=== PATIENT | male | born 1945 | race Caucasian/White ===

== ENCOUNTER → 2017-06-08 | Outpatient (CLI) | payer OTHER, MEDICARE ==
[~2017-06-08] MED LIST: ALLEGRA180 MG PO; ASPIRIN E.C. 8181 MG PO; FLOMAX 0.40.4 MG/CAP PO; GLUCOPHAGE1000 MG PO; GLUCOPHAGE500 MG/TAB PO; GLUCOSAMINE & C1 CA1 PO; GLUCOSAMINE & C1 TA1 PO; LEVAQUIN 5500 MG/TA1 PO; LORTAB 5/500 501 TAB PO; MULTI VITAMINS1 TAB PO; NORCO 325 MG-51 TAB PO; PLAVIX 75MG TAB75 MG PO; TOPROL XL 50MG50 MG PO; ZOFRAN 4MG T4 MG/TAB PO
== END ==
LOC: SUN.DIA 14:33
DX: E11.9 Type 2 diabetes mellitus without complications (principal); Z71.3 Dietary counseling and surveillance
CPT/HCPCS: G0109

== ENCOUNTER → 2017-06-21 | Outpatient (CLI) | payer OTHER, MEDICARE | LOC: SUN.DIA 10:01 | DX: E11.9 Type 2 diabetes mellitus without complications (principal); Z68.23 Body mass index [BMI] 23.0-23.9, adult; Z71.3 Dietary counseling and surveillance | CPT/HCPCS: G0108 ==

== ENCOUNTER → 2017-06-22 | Outpatient (CLI) | payer OTHER, MEDICARE | LOC: SUN.DIA 08:43 | DX: E11.9 Type 2 diabetes mellitus without complications (principal); Z71.3 Dietary counseling and surveillance | CPT/HCPCS: G0109 ==

== ENCOUNTER → 2017-06-29 | Outpatient (CLI) | payer OTHER, MEDICARE | LOC: SUN.DIA 10:42 | DX: E11.9 Type 2 diabetes mellitus without complications (principal) | CPT/HCPCS: G0109 ==

== ENCOUNTER → 2017-07-06 | Outpatient (CLI) | payer OTHER, MEDICARE | LOC: SUN.DIA 18:00 | DX: E11.9 Type 2 diabetes mellitus without complications (principal); Z71.3 Dietary counseling and surveillance | CPT/HCPCS: G0109 ==

== ENCOUNTER → 2017-07-07 | Outpatient (CLI) | payer MEDICARE | LOC: SUN.DIA 09:32 | DX: E11.9 Type 2 diabetes mellitus without complications (principal); Z68.23 Body mass index [BMI] 23.0-23.9, adult; Z71.3 Dietary counseling and surveillance ==

== ENCOUNTER → 2017-08-18 | Outpatient (CLI) | payer MEDICARE, OTHER | LOC: SUN.DIA 09:32 | DX: E11.9 Type 2 diabetes mellitus without complications (principal); Z68.23 Body mass index [BMI] 23.0-23.9, adult; Z71.3 Dietary counseling and surveillance ==

== ENCOUNTER → 2018-06-01 | Outpatient (CLI) | payer MEDICARE, OTHER ==
[~2018-06-01] MED LIST changes: +ALLEGRA ALLERGY60 MG PO; +BENEFIBER; +LIPITOR 10MG10 MG PO; +OSTEO-BI-FLEX 21 TAB PO; +UROCIT-K 5540 MG/TAB PO
== END ==
LOC: COL.RAD 09:58
DX: I25.2 Old myocardial infarction (principal); R59.0 Localized enlarged lymph nodes
CPT/HCPCS: Q9967

== ENCOUNTER 2018-07-28 16:33 | Inpatient (IN) | payer MEDICARE, OTHER ==
[~2018-07-28] VITALS: Ht 177.8 cm; Wt 73.6 kg
[2018-08-23] VITALS (12 sets, daily range): BP systolic 91–131; BP diastolic 49–78; PULSE 51–75; TEMP 97.6–98.6
[2018-08-23] MEDS ORDERED: POTASSIUM CITRATE ER PO (03:06)
[2018-08-23] MEDS ORDERED: UROCIT-K 5540 MG/TAB PO (03:06)
--- NOTE | 2018-08-23 06:30 | NUR ---
to surgery per bed, bedside shift report received from CODY Prieto
--- NOTE | 2018-08-23 10:45 | NUR ---
returned to room per bed from PACU, awake and alert, IV infusing and placed on pump at 125ml/hr, O2 on at 3L/NC and O2 sat 100%, zacarias cath patent draining clear yellow urine, SCDS and JOSIE hose on, has sensation to top of thighs and unable to move lower extremities, full assessment completed, see interventions for further info, given sips of water and tolerates well, denies needs, and daughter at bedside
--- NOTE | 2018-08-23 12:33 | NUR ---
has sensation to knee on the left and calf on the right, also has gross motor movement, provided applesauce per his request, otherwise denies needs, sleeps between checks
--- NOTE | 2018-08-23 13:10 | NUR ---
Rosalie CHILD in to see patient
--- NOTE | 2018-08-23 13:30 | NUR ---
awake now and ready for something to eat, instructed on ordering regular food, verbalizes understanding
--- NOTE | 2018-08-23 14:30 | NUR ---
had lunch and tolerated well, has sensation to feet and is able to move lower extremities, denies needs
--- NOTE | 2018-08-23 20:00 | NUR ---
Assessment completed. Patient is A&O x 4. VSS, currently on 3 liters of supplemental O2 via nasal cannula. Denies any pain at this time. Aquacell dressing to left hip is CDI with a fresh ice pack applied. Pedal pulses intact. BLE marleni hose/scds on. Encouraged ankle pumps. Tolerating diet with no c/o nausea. Serrano catheter to DD with yellow clear urine draining. IVF infusing with intermittent antibiotic per orders. Up with assist x 1 with walker and gait belt, ambulated 50 feet this evening in the hallway with staff. Assisted with repositioning in bed after ambulating in the hallway. Denies any concerns or needs at this time. Bed is in a low position with call light in reach.
--- NOTE | 2018-08-23 23:51 | NUR ---
Patient is resting in bed. Reports "soreness" to left upper thigh, denies wanting any pain medication at this time.
[2018-08-24 00:53] VITALS: BP 94/54; PULSE 59; TEMP 98.9
--- NOTE | 2018-08-24 05:31 | NUR ---
Patient has rested well through the night. VSS. Continues to report minimal pain to left hip, denies any pain medication. Aquacell dressing to left hip remains CDI with a fresh ice pack applied to knee. Serrano catheter remains to DD with yellow clear urine draining. IVF to INT after last dose of antibiotic this morning. Denies any concerns or needs at this time, call light is within reach.
[2018-08-24 05:32] VITALS: BP 102/58; PULSE 60; TEMP 98.6
--- NOTE | 2018-08-24 07:00 | NUR ---
awake resting in bed, bedside shift report received from CODY Prieto
[2018-08-24 07:05] LABS: CALCIUM 8.3 mg/dL (8.4-10.2); CREATININE, serum 1.12 mg/dL (0.66-1.25); HEMATOCRIT 35.4 % (42.0-52.0); POTASSIUM 4.3 mmol/L (3.4-5.0)
--- NOTE | 2018-08-24 07:48 | NUR ---
appears to be sleeping, in bed with lights off, eyes closed, resp quiet and easy
[2018-08-24 08:15] VITALS: BP 116/60; PULSE 61; TEMP 97.9
--- NOTE | 2018-08-24 08:15 | NUR ---
up in chair ready for breakfast, full assessment completed, see interventions for further info,
--- NOTE | 2018-08-24 09:20 | NUR ---
physical therapy in to work with patient, ambulating out in banuelos and moves well
--- NOTE | 2018-08-24 10:20 | NUR ---
First visit from the security supervisor. No needs right now.
--- NOTE | 2018-08-24 11:00 | NUR ---
remains up in chair, visiting with , denies needs
[2018-08-24 11:52] VITALS: BP 90/51; PULSE 54; TEMP 98.3
--- NOTE | 2018-08-24 13:16 | NUR ---
ambulated out to banuelos with physical therapy for group exercises
--- NOTE | 2018-08-24 13:54 | NUR ---
SW and SW student met with patient and about discharge planning. Patient lives independently at home with his . His PCP is Dr Rodriguez and he obtians his prescriptions from either [facility] or [facility]. He does not use any home health or medical equipment at home but will need a walker for discharge. Patient has a DPOA and a copy is in the chart. Patient chose [facility] to provide his walker. SW will fax the order to [facility]. No additional needs upon discharge.
--- NOTE | 2018-08-24 14:44 | NUR ---
Walker order placed on chart for DR signature.
--- NOTE | 2018-08-24 15:11 | NUR ---
in chair and appears to be resting, dozes at intervals, denies needs
[2018-08-24 15:56] VITALS: BP 125/62; PULSE 57; TEMP 97.9
--- NOTE | 2018-08-24 15:56 | NUR ---
visiting with friends and denies needs
--- NOTE | 2018-08-24 17:01 | NUR ---
up in chair visiting with , denies needs
--- NOTE | 2018-08-24 17:33 | NUR ---
sitting up in chair eating supper, at beside
--- NOTE | 2018-08-24 18:46 | NUR ---
bedside shift report given to CODY Kimball
--- NOTE | 2018-08-24 20:45 | NUR ---
Pt. sitting up in chair at this time. Pt. is A&OX3, assessment complete. INT to rt. hand patent. Dressing to lt. hip CDI. Pt. denies pain or other needs at this time.
[2018-08-24 20:55] VITALS: BP 135/85; PULSE 77; TEMP 98.6
[2018-08-25 00:15] VITALS: BP 127/69; PULSE 85; TEMP 98.1
--- NOTE | 2018-08-25 06:09 | NUR ---
Pt. slept off and on through the night. Pt. remains A&OX3. INT to rt. hand patent. Dressing to lt. hip CDI. Pt. denies pain or other needs, call light within reach.
[2018-08-25] MEDS ORDERED: NORCO 325 MG-7.1 TAB PO (06:33)
[2018-08-25] MEDS ORDERED: ASPI325T6 PO (06:33)
[2018-08-25] MEDS ORDERED: ZANTAC 150MG T150 MG PO (06:34)
[2018-08-25] MEDS ORDERED: ROXICODONE 55 MG/TAB PO (06:34)
[2018-08-25] MEDS ORDERED: TYLENOL 500MG500 MG PO (06:56)
[2018-08-25] MEDS ORDERED: ULTRAM 50MG TAB50 MG PO (06:56)
--- NOTE | 2018-08-25 07:05 | NUR ---
REPORT FROM LORENA ROSS. PT RESTING IN BED. ROSA HORAN APRN IN TO SEE PT THIS AM. LAUREN PAPERWORK GIVEN TO TRAIN OPERATIONS MANAGER TO HAVE MD SIGN AND [facility]. PT PLANS ON DISCHARGE AFTER THERAPY TODAY.
[2018-08-25 07:19] VITALS: BP 130/65; PULSE 85; TEMP 98.4
--- NOTE | 2018-08-25 09:33 | NUR ---
PT OUT TO [facility] FOR THERAPY AFTER SHOWERING WITH OT. INT DISCONTINUED PER ORDERS. TIP INTACT. PT DOING WELL, PLAN ON DISCHARGE LATER TODAY.
--- NOTE | 2018-08-25 09:51 | NUR ---
Walker order and clinical information sent to [facility]. Patient is dc today home with outpatient PT.
[2018-08-25 11:39] VITALS: BP 109/67; PULSE 78; TEMP 98.5
--- NOTE | 2018-08-25 14:09 | NUR ---
discharge instructions given to patient and spouse. Questions answered. patient taken to front by wheel chair with staff.
== END 2018-08-25 14:11 | disposition home or self-care (01) | DRG 470 ==
LOC: JCC 08-23 05:22
PROVIDERS: Physician Assistant; ADMIT Orthopaedic Surgery
PROC: 0SRB0JA Replacement of Left Hip Joint with Synthetic Substitute, Uncemented, Open Approach (ICD-10-PCS; principal; 2018-08-23 07:30)
DX: M16.12 Unilateral primary osteoarthritis, left hip (principal); E11.9 Type 2 diabetes mellitus without complications; Z79.84 Long term (current) use of oral hypoglycemic drugs; Z85.72 Personal history of non-Hodgkin lymphomas
CPT/HCPCS: 99222; 99231-AI; A4314; A9284; C1713; C1776; J0690; J1100; J1815; J2250; J2370; J2405; J2704; J7030; J7050; J7120

== ENCOUNTER 2018-08-15 13:15 | Outpatient (RCR) | payer MEDICARE, OTHER ==
[2018-08-23] MEDS ORDERED: UROCIT-K 5540 MG/TAB PO (03:06)
[2018-08-23] MEDS ORDERED: POTASSIUM CITRATE ER PO (03:06)
[2018-08-25] MEDS ORDERED: ASPI325T6 PO (06:33)
[2018-08-25] MEDS ORDERED: NORCO 325 MG-7.1 TAB PO (06:33)
[2018-08-25] MEDS ORDERED: ZANTAC 150MG T150 MG PO (06:34)
[2018-08-25] MEDS ORDERED: ROXICODONE 55 MG/TAB PO (06:34)
[2018-08-25] MEDS ORDERED: ULTRAM 50MG TAB50 MG PO (06:56)
[2018-08-25] MEDS ORDERED: TYLENOL 500MG500 MG PO (06:56)
== END 2018-08-28 13:03 | disposition home or self-care (01) ==
LOC: MKS.ESL.PT 13:15
DX: Z01.818 Encounter for other preprocedural examination (principal); M16.12 Unilateral primary osteoarthritis, left hip

== ENCOUNTER → 2018-08-16 | Outpatient (CLI) | payer MEDICARE, OTHER ==
[2018-08-16 12:59] LABS: HIV 1/2 Antibodies Non-Reactive; HIV-1p24 Antigen Non-Reactive
== END ==
LOC: COL.LAB 11:56
PROVIDERS: Orthopaedic Surgery
DX: M16.12 Unilateral primary osteoarthritis, left hip (principal)

== ENCOUNTER 2018-11-16 09:15 | Outpatient (RCR) | payer MEDICARE, OTHER ==
[~2018-11-16 09:15] MED LIST changes: +ASPI325T6 PO; +NORCO 325 MG-7.1 TAB PO; +POTASSIUM CITRATE ER PO; +ROXICODONE 55 MG/TAB PO; +TYLENOL 500MG500 MG PO; +ULTRAM 50MG TAB50 MG PO; +ZANTAC 150MG T150 MG PO
== END 2018-11-26 | disposition home or self-care (01) ==
LOC: MKS.ESL.PT
DX: Z47.1 Aftercare following joint replacement surgery (principal); Z96.642 Presence of left artificial hip joint

== ENCOUNTER → 2020-06-16 | Outpatient (CLI) | payer MEDICARE, OTHER | LOC: COL.RAD 07:33 | DX: C82.98 Follicular lymphoma, unspecified, lymph nodes of multiple sites (principal); R59.0 Localized enlarged lymph nodes | CPT/HCPCS: Q9967 ==

== ENCOUNTER → 2021-06-16 | Outpatient (CLI) | payer MEDICARE, OTHER | LOC: COL.RAD 08:43 | DX: C82.08 Follicular lymphoma grade I, lymph nodes of multiple sites (principal) | CPT/HCPCS: Q9967 ==

== ENCOUNTER 2022-11-28 16:42 | Inpatient (IN) | payer MEDICARE, OTHER ==
[~2022-11-28] VITALS: Ht 177.8 cm; Wt 81.4 kg
[2022-11-28 17:28] LABS: HEMOGLOBIN 12.3 g/dl (13.5-18.0); MEAN CELL VOLUME 88 fl (80.0-100.0); MEAN CORPUSCULAR HEMOGLOBIN 30 pg (27-31); MEAN CORPUSCULAR HGB CONC 34 g/dl (33.0-37.0); MEAN PLATELET VOLUME 9.6 fl (7.4-10.4); PLATELET COUNT 187 K/mm3 (130-400); RED BLOOD COUNT 4.09 M/mm3 (4.20-5.60)
[2022-11-28 17:37] LABS: HEMATOCRIT 35.9 % (42.0-52.0)
[2022-11-28 17:43] LABS: COLLECTION METHOD CLEAN CATCH
[2022-11-28 17:47] LABS: ALANINE AMINOTRANSFERASE 22 U/L (0-55); ALBUMIN 3.9 gm/dL (3.4-4.8); ALKALINE PHOSPHATASE 104 U/L (40-150); ANION GAP 14 mmol/L (7-16); AST,SGOT 18 U/L (5-34); BLOOD UREA NITROGEN 25 mg/dL (8-26); CALCIUM 9.3 mg/dL (8.4-10.2); CARBON DIOXIDE 18 mmol/L (23-31); CHLORIDE 103 mmol/L (98-107); CREATININE, serum 1.55 mg/dL (0.72-1.25); GLUCOSE 275 mg/dL (70-99); POTASSIUM 4.5 mmol/L (3.5-4.5); SODIUM 135 mmol/L (136-145); TOTAL PROTEIN 6.9 gm/dL (6.2-8.1)
[2022-11-28 18:03] LABS: ACETONE,SERUM NEGATIVE
[2022-11-28 18:04] LABS: TROPONIN-I < 0.010 ng/mL (0.00-0.033)
[2022-11-28 18:05] LABS: SQUAMOUS EPITHELIAL 0-2 /hpf (0-10); URINE BACTERIA Rare /hpf (NONE SEEN)
[2022-11-28 18:06] LABS: PH 5.5 (5-8); URINE APPEARANCE Cloudy (CLEAR/HAZY); URINE BLOOD 1+ (NEGATIVE); URINE COLOR Yellow (YELLOW); URINE GLUCOSE 2+ (NEGATIVE); URINE KETONE Negative (NEGATIVE); URINE NITRATE Positive (NEGATIVE); URINE PROTEIN(semi-quant) 1+ (NEGATIVE); URINE UROBILINOGEN 0.2 (NEGATIVE)
[2022-11-28 18:45] LABS: BAND 19 % (0-10); EOSINOPHIL 1 % (0-4); LYMPHOCYTE 4 % (20.0-51.0); NEUTROPHILS 75 % (42.0-75.2); NUCLEATED RED BLOOD CELL 1 (0-6)
[2022-11-28 18:46] LABS: PLATELET ESTIMATE NORMAL (NORMAL)
[2022-11-28] MEDS ORDERED: CIPRO 500MG TA500 MG PO (18:58)
[2022-11-28] MEDS ORDERED: AMARYL1 MG PO (18:59)
[2022-11-28] MEDS ORDERED: PRINIVIL5 MG PO (18:59)
[2022-11-28] MEDS ORDERED: GLUCOPHAGE XR500 M1 PO (18:59)
[2022-11-28] MEDS ORDERED: FLOMAX 0.40.4 MG/CAP PO (19:00)
[2022-11-28 19:01] LABS: INR 1.1 (0.8-3.0); PROTHROMBIN TIME 12.8 SECONDS (9.7-12.8)
[2022-11-28] MEDS ORDERED: ZYRTEC 10MG10 MG PO (19:01)
[2022-11-28] MEDS ORDERED: ASPIRIN 81M81 MG/TA2 PO (19:01)
--- NOTE | 2022-11-28 20:01 | NUR ---
RECEIVED REPORT FROM Raul ROSS, BAS[place]. WAITING FOR PATIENT ARRIVAL TO ROOM 324 FOR ADMIT
--- NOTE | 2022-11-28 20:11 | NUR ---
PATIENT TO FLOOR PER CART. STAND/PIVOT TRANSFER FROM CART TO BED WITH ASST X1 WITH NO REPORTED PROBLEMS.
[2022-11-28 20:15] VITALS: BP 94/52; PULSE 86; TEMP 99.3
[2022-11-28 22:33] VITALS: BP 98/53; PULSE 76; TEMP 98.4
--- NOTE | 2022-11-28 22:37 | NUR ---
CLARIFIED LR BOLUS ORDERS FOR 500 ML TO BE GIVEN WITH PROVIDER WITH CONFIRMATION THAT BOLUS TO BE GIVEN AND TO CONTINUE IV FLUIDS ORDERED. PATIENT DENIES CHEST PAIN/SOA/CHILLING AT THIS TIME. DENIES ANY NEEDS CURRENTLY.
[2022-11-28 23:21] VITALS: BP 90/45; BP 90/54; PULSE 74; TEMP 98.4
--- NOTE | 2022-11-28 23:28 | NUR ---
INFORMED ONCALL HOSP OF CURRENT BP OF 90/45 WITH NO NEW ORDERS GIVEN, WILL CONTINUE TO MONITOR PER PROVIDER REC AND CALL IF SBP DROPS TO THE 80'S. PATIENT DENIES ANY CHEST PAIN/SOA CURRENTLY. IVF INFUSING WITH NO PROBLEMS.
--- NOTE | 2022-11-28 23:36 | NUR ---
ONCALL PROVIDER CALLED AND RECOMMENDED HOURLY BP CHECKS FOR NOW.
[2022-11-28 23:37] VITALS: BP 104/57
[2022-11-29] VITALS (14 sets, daily range): BP systolic 100–174; BP diastolic 49–84; PULSE 78–108; TEMP 97.6–101.7
--- NOTE | 2022-11-29 04:50 | NUR ---
INFORMED ONCALL PROVIDER OF MOST RECENT BP READINGS WITH RECOMMENDATIONS TO CHECK BP WITH VS EVERY 4 HOURS ORDER PREVIOUSLY.
--- NOTE | 2022-11-29 06:45 | NUR ---
CHANGE OF SHIFT REPORT GIVEN TO DAY SHIFT RNTELMA.
[2022-11-29 06:48] LABS: ALBUMIN 3.2 gm/dL (3.4-4.8); BILIRUBIN,TOTAL 0.5 mg/dL (0.2-1.2); CALCIUM 8.7 mg/dL (8.4-10.2); CREATININE, serum 1.44 mg/dL (0.72-1.25); POTASSIUM 4.5 mmol/L (3.5-4.5); TOTAL PROTEIN 5.7 gm/dL (6.2-8.1)
[2022-11-29 07:14] LABS: BASO % 0.3 % (0.0-2.0); EOS # 0.3 K/mm3 (0.0-0.7); EOS % 2.5 % (0.0-4.0); GRAN # 11.4 K/mm3 (1.4-6.5); GRAN % 85.9 % (42.2-75.2); HEMOGLOBIN 11.2 g/dl (13.5-18.0); LYMPH # 0.7 K/mm3 (1.2-3.4); LYMPH % 5.3 % (20.0-51.0); MEAN CELL VOLUME 87 fl (80.0-100.0); MEAN CORPUSCULAR HEMOGLOBIN 30 pg (27-31); MEAN CORPUSCULAR HGB CONC 35 g/dl (33.0-37.0); MEAN PLATELET VOLUME 9.6 fl (7.4-10.4); MONO # 0.7 K/mm3 (0.1-0.6); MONO % 5.5 % (1.7-9.3); PLATELET COUNT 167 K/mm3 (130-400); RED BLOOD COUNT 3.72 M/mm3 (4.20-5.60); REDCELL DISTRIBUTION WIDTH-CV 13.3 % (11.5-14.5)
[2022-11-29 07:15] LABS: HEMATOCRIT 32.5 % (42.0-52.0)
--- NOTE | 2022-11-29 07:59 | NUR ---
Pt appears to be doing well this morning. No complaints of pain. Tolerated breakfast. Denies any needs at this time, call light within reach
--- NOTE | 2022-11-29 08:55 | NUR ---
CARLOS met with the patient and his , Chrystal (ph#[phone]), to discuss discharge plan. The patient lives in [place] with his . He shares that their grandson is staying with them, while he is at college here. He reports independence with ADLs and does not have any DME. The patient's PCP is Dr. Cm Rodriguez and he obtains his medications from [facility]. The patient's DPOA-HC is in EMR and it designates his and daughter, Radha. The patient plans to return home with his upon discharge. No additional needs at this time. *Discharge plan: home with *
--- NOTE | 2022-11-29 13:06 | NUR ---
Initial visit: Bill Adjuster stopped by the room on rounds. Pt was resting and content. Pt has no needs right now. Bill Adjuster will follow up as needed.
--- NOTE | 2022-11-29 15:42 | NUR ---
Notified Dr Andino of pt BP, new orders received
--- NOTE | 2022-11-29 16:19 | NUR ---
Juan Manuel CHILD with urology notified of consult
--- NOTE | 2022-11-29 18:11 | NUR ---
Pt having issues with urgency, reports that it is getting worse. Pt going very small amount every few minutes. Pt has remained at beside most of the day. No complaints of pain
--- NOTE | 2022-11-29 19:02 | NUR ---
RECEIVED CHANGE OF SHIFT REPORT FROM DAY SHIFT RN. PATIENT RESTING IN BED, AT BEDSIDE. DENIES ANY CHEST PAIN/SOA/DIZZINESS/NUMBNESS OR TINGLING TO EXTREMITIES/NAUSEA AT THIS TIME. PATIENT REPORTS IS STILL HAVING PROBLEMS WITH URGENCY AND FREQUENCY AND ENCOURAGED PATIENT TO MENTION HIS URINARY CONCERNS WITH DR. ROBERTS ON DOCTOR'S ROUND. PATIENT DENIES ANY OTHER NEEDS AT THIS TIME. CALL LIGHT IN REACH.
--- NOTE | 2022-11-29 19:36 | NUR ---
INFORMED ONCALL PROVIDER OF ELEVATED POST TYLENOL DOSING AT 101.2 WITH RECOMMENDATIONS FOR ICE PACKS AND RECHECK TEMP FOR RESPONSE.
--- NOTE | 2022-11-29 23:04 | NUR ---
PATIENT SLEEPING, DID NOT WAKE WHEN STAFF OPENED DOOR TO ROOM ON NURSING ROUNDS. BREATHING EVEN AND NONLABORED. IV FLUIDS INFUSING.
[2022-11-30] VITALS (7 sets, daily range): BP systolic 133–152; BP diastolic 65–85; PULSE 82–110; TEMP 97.9–100.2
--- NOTE | 2022-11-30 06:50 | NUR ---
CHANGE OF SHIFT REPORT GIVEN TO DAY SHIFT RNBRADEN.
--- NOTE | 2022-11-30 07:12 | NUR ---
Shift report received from the night nurseDoris RN.
[2022-11-30 07:37] LABS: BASO % 0.5 % (0.0-2.0); EOS # 0.2 K/mm3 (0.0-0.7); EOS % 3.1 % (0.0-4.0); GRAN # 6.2 K/mm3 (1.4-6.5); GRAN % 83.2 % (42.2-75.2); HEMATOCRIT 33.4 % (42.0-52.0); HEMOGLOBIN 11.4 g/dl (13.5-18.0); LYMPH # 0.5 K/mm3 (1.2-3.4); LYMPH % 6.6 % (20.0-51.0); MEAN CELL VOLUME 88 fl (80.0-100.0); MEAN CORPUSCULAR HEMOGLOBIN 30 pg (27-31); MEAN CORPUSCULAR HGB CONC 34 g/dl (33.0-37.0); MEAN PLATELET VOLUME 10.1 fl (7.4-10.4); MONO # 0.4 K/mm3 (0.1-0.6); MONO % 5.9 % (1.7-9.3); PLATELET COUNT 165 K/mm3 (130-400); RED BLOOD COUNT 3.81 M/mm3 (4.20-5.60); REDCELL DISTRIBUTION WIDTH-CV 13.2 % (11.5-14.5)
[2022-11-30 07:41] LABS: ALBUMIN 3.1 gm/dL (3.4-4.8); BILIRUBIN,TOTAL 0.6 mg/dL (0.2-1.2); CALCIUM 8.9 mg/dL (8.4-10.2); CREATININE, serum 1.31 mg/dL (0.72-1.25); POTASSIUM 4.1 mmol/L (3.5-4.5); TOTAL PROTEIN 5.9 gm/dL (6.2-8.1)
--- NOTE | 2022-11-30 09:02 | NUR ---
Patient sitting up in a recliner by the bedside , alert and oriented. IVF of LR infusing at 75ml. Patient states he has been having urinary frequency about 3 times this am. Patient reports of large amount of clear yellow urine. Patient denies SOB, painful urination. No distress noted , spouse at the bedside.
[2022-11-30] MEDS ORDERED: CEFTIN500 MG PO (10:15)
--- NOTE | 2022-11-30 12:18 | NUR ---
Discharge instruction given and patient has no issues or concerns. INT discontinued.
--- NOTE | 2022-11-30 13:23 | NUR ---
Patient discharged home at 1255.
== END 2022-11-30 12:55 | disposition home or self-care (01) | DRG 872 ==
LOC: COL.ER 16:42 → SURG 18:41
PROVIDERS: Emergency Medicine; Nurse Practitioner Family; ADMIT Internal Medicine
DX: A41.9 Sepsis, unspecified organism (principal); N17.9 Acute kidney failure, unspecified; N13.6 Pyonephrosis; E87.20 Acidosis, unspecified; E87.1 Hypo-osmolality and hyponatremia; Z66 Do not resuscitate; E11.22 Type 2 diabetes mellitus with diabetic chronic kidney disease; Z20.822 Contact with and (suspected) exposure to COVID-19; R65.20 Severe sepsis without septic shock; I12.9 Hypertensive chronic kidney disease with stage 1 through stage 4 chronic kidney disease, or unspecified chronic kidney disease; D64.9 Anemia, unspecified; N18.30 Chronic kidney disease, stage 3 unspecified; E78.5 Hyperlipidemia, unspecified; Z96.642 Presence of left artificial hip joint; E11.65 Type 2 diabetes mellitus with hyperglycemia; N40.0 Benign prostatic hyperplasia without lower urinary tract symptoms; Z90.89 Acquired absence of other organs; Z87.442 Personal history of urinary calculi; Z85.51 Personal history of malignant neoplasm of bladder; Z88.0 Allergy status to penicillin; Z79.84 Long term (current) use of oral hypoglycemic drugs; Z79.82 Long term (current) use of aspirin; Z79.2 Long term (current) use of antibiotics; Z85.72 Personal history of non-Hodgkin lymphomas; Z23 Encounter for immunization
CPT/HCPCS: J0696; J1644; J1815; J2405; J7120